=== PATIENT | female | born 1980 | race Caucasian/White ===

== ENCOUNTER 2024-10-04 13:46 | Outpatient (CLI) | payer BC, SELFPAY ==
--- NOTE | 2024-10-04 14:00 | CRLHL7_ITS ---
For Patients: As a result of the Century Cures Act, medical imaging exams and procedure reports are released immediately into your electronic medical record. You may view this report before your referring provider. If you have questions, please contact your health care provider. HISTORY: Dating and viability COMPARISON: None available of this gestation. TECHNIQUE: Transabdominal ultrasound examination of the early was performed. FINDINGS: A single intrauterine gestational sac is seen with a pole. The crown-rump length measurement of 3.3 cm gives an estimated gestational age of 10 weeks 1 day with an estimated date of delivery of 05/01/2025. This correlates well with the LMP of 07/23/2020 for which gives a clinical age of 10 weeks 3 days. Regular cardiac activity is seen at 180 BPM. There is no sign of free fluid in the pelvis. A complex probable corpus luteum cyst of is seen in the left ovary the ovaries are otherwise normal in appearance. IMPRESSION: Single intrauterine gestation with estimated age of 10 weeks 1 day. Regular cardiac activity is seen. Dictated by Aditya Rhodes MD @ 10/06/2024 12:28:05 PM (Electronically Signed)
== END 2024-10-04 13:47 | disposition home or self-care (01) ==
LOC: US 13:47
PROVIDERS: Visit Provider Advanced Practice Midwife
DX: Z34.91 Encounter for supervision of normal pregnancy, unspecified, first trimester (principal); Z3A.10 10 weeks gestation of pregnancy
CPT/HCPCS: 76801

== ENCOUNTER 2024-10-04 14:56 | Outpatient (CLI) | payer BC, SELFPAY | END 2024-10-04 14:57 | disposition home or self-care (01) | PROVIDERS: Visit Provider Advanced Practice Midwife | DX: O09.521 Supervision of elderly multigravida, first trimester (principal); Z3A.10 10 weeks gestation of pregnancy | CPT/HCPCS: 83021; 86592; 86703; 86704; 86706; 86762; 86787; 86803; 86850; 86900; 86901; 87086; 87340 ==

== ENCOUNTER 2024-10-30 11:08 | Outpatient (CLI) | payer BC, SELFPAY ==
--- NOTE | 2024-10-30 11:30 | CRLHL7_ITS ---
For Patients: As a result of the Century Cures Act, medical imaging exams and procedure reports are released immediately into your electronic medical record. You may view this report before your referring provider. If you have questions, please contact your health care provider. INDICATION: Concern for demise COMPARISON: 10/04/2020 TECHNIQUE: Ring-scale and color Doppler of the gravid uterus and fetus from a transabdominal approach. FINDINGS: Last menstrual period: 07/23/2024 Estimated gestational age: 14 weeks 1 day There is a single intrauterine gestation. Warrens-rump length is 6.9 centimeters which corresponds to an estimated gestational age of 13 weeks and 1 day. No cardiac activity is identified. Relatively low amniotic volume. Early placental formation along the left side of the uterus. IMPRESSION: demise. No cardiac activity. Dictated by Sindhu Wood MD @ 10/30/2024 12:35:24 PM (Electronically Signed)
== END 2024-10-30 11:09 | disposition home or self-care (01) ==
LOC: US 11:09
PROVIDERS: Visit Provider Obstetrics & Gynecology
DX: Z34.92 Encounter for supervision of normal pregnancy, unspecified, second trimester (principal); O36.4XX0 Maternal care for intrauterine death, not applicable or unspecified; Z3A.14 14 weeks gestation of pregnancy
CPT/HCPCS: 76815

== ENCOUNTER 2024-11-22 21:14 | Day surgery (SDC) | payer BC, SELFPAY ==
[2024-11-22] VITALS (7 sets, daily range): BP systolic 112–128; BP diastolic 66–68; PULSE 87–110; RESP 18; TEMP 36.9; O2SAT 100; BMI 24.1
--- OUTSIDE RECORDS SUMMARY | 2024-11-22 21:16 | XMS_ITS | Clinical Summary ---
[facility] Address [address] [address] Care Team Providers Care Summer Analyst Name Role Phone Shira Moreno MD Primary Care Provider Source Comments You are receiving this document as you are listed as the primary care provider,follow-up provider, or the patient has been referred to you for consultation.This is in compliance with the Medicare andOhio[facility] Hospitalca[facility] EHR Incentive Program,which states Providers who transition their patient to another setting of careor provider of care or refers their patient to another provider of care shouldprovide summary care record for each transition of care or referral. [email or web address] Allergies Active Allergy Reactions Criticality Noted Date Comments Penicillin V Rash Low 10/13/2016 Medications Medication Sig Dispensed Refills Start Date End Date Status Vit-Fe Fumarate-FA ( OR) Active Active Problems Problem Noted Date Diagnosed Date Supervision of wit h grand multiparity in third trimester 10/13/2016 Overview (11/12/2016): Hus: Spenser Sex: Boy plan: natural Kidney stones 10/13/2016 Family history of chromosomal abnormality 2015 Resolved Problems Problem Noted Date Diagnosed Date Resolved Date Malposition of fetus 12/11/2016 017 Overview (12/11/2016): Breech- sent for formal US Family History Medical History Relation Name Comments Diabetes Father Heart Attack Father High Cholesterol Father Hypertension Father Hypertension Mother Osteoporosis Mother Heart Disease Paternal Grandfather Heart Disease Paternal Grandmother Relation Name Status Comments Father Alive Mother Alive Brother Alive Maternal Grandfather Maternal Grandmother Paternal Grandfather Paternal Grandmother Sister Alive Social History Tobacco Use Types Packs/Day Years Used Date Smoking Tobacco: Never Alcohol Use Standard Drinks/Week Comments No 0 (1 standard drink = 0.6 oz pur e alcohol) Sex and Gender Information Value Date Recorded Sex Assigned at Not on file Gender Identity Not on file Sexual Orientation Not on file Last Filed Vital Signs Vital Sign Reading Time Taken Comments Blood Pressure 128/80 12/18/2016 12:46 PM PIANO TEACHER Pulse 80 10/13/2016 10:45 AM PIANO TEACHER Temperature - - Respiratory Rate - - Oxygen Saturation - - Inhaled Oxygen Concentration - - Weight 78.9 kg (174 lb) 12/18/2016 12:44 PM PIANO TEACHER Height 163.8 cm (5' 4.5) 10/13/2016 10:45 AM CS T Body Mass Index 29.41 10/13/2016 10:45 AM PIANO TEACHER Plan of Treatment Health Maintenance Due Date Last Done Comments Cervical Cancer Screening Due 1981 Hep C Screening (Preventive Services) 1981 Mammogram 1981 HIV Screening (Preventive Services) 1997 Adult Preventive Visit 1999 DTaP/Tdap/Td (1 - Tdap) 2000 HepB (1) 2000 COVID-19 Vaccine ( - 2023-2 5 season) 2024 Influenza (#1) 2024 Zoster/Shingles (1 of 2) 2031 HPV Vaccine Aged Out No longer eligi ble based on patient's age to complete this topic HepA Aged Out No longer eligi ble based on patient's age to complete this topic Hib Aged Out No longer eligi ble based on patient's age to complete this topic IPV (Polio) Aged Out No longer eligi ble based on patient's age to complete this topic MCV4 Aged Out No longer eligi ble based on patient's age to complete this topic Pneumococcal Aged Out No longer eligi ble based on patient's age to complete this topic Care Teams Summer Analyst Relationship Specialty Start Date End Date Shira Moreno MD [address] [place] [phone] PCP - General Family Practice 10/13/16
--- OUTSIDE RECORDS SUMMARY | 2024-11-22 21:16 | XMS_ITS | Referral Summary ---
Author Organization [facility] Address [address] [place] [address] Care Team Providers Care Lead Ramp Agent Name Role Phone Shira Moreno M.D. Primary Care Provider [phone] Source Comments Patient records contain information from all sites at [facility]. For routine questions regarding patient records, call [phone] during business hours, M-F 8:00 AM - 5:00 PM Central Time. Record requests for emergency care only can be directed to [phone] at any time.[facility] Allergies Active Allergy Reactions Criticality Noted Date Comments Penicillin V Rash Low 10/13/2016 Medications PNV no.95/ferrous fum/folic ac ( MULTIVITAMINS ORAL) Take 1 tablet by mouth daily. 02/17/20 14 Active acetaminophen (TYLENOL) 500 mg tablet Take 2 tablets (1,000 mg total) by mouth every 6 (six) hours as needed for pain. Alternate with ibuprofen every 3 hours. Do not exceed 4000 mg or 4 g in 24 hours. 10/06/20 23 Active ibuprofen (ADVIL,MOTRIN) 200 mg tablet Take 3 tablets (600 mg total) by mouth every 6 (six) hours as needed for pain. Alternate with acetaminophen every 3 hours. 10/06/20 23 Active Active Problems Problem Noted Date Diagnosed Date Incomplete Spontaneous 10/06/2023 Preoperative Exam 10/06/2023 Bleeding Vaginal Less Than 22 Week Pre gnancy 10/06/2023 Menstrual Irregularity 03/15/2023 Multigravida Advanced Matern al Age Affecting Management 12/07/2018 Calculus of kidney 10/13/2016 Resolved Problems Problem Noted Date Diagnosed Date Resolved Date 40 Weeks Gestation 12/06/2020 03/15/2023 33 Weeks Gestation 10/16/2020 11/20/2020 39 Weeks Gestation 02/15/2019 07/18/2020 Hypertension Gestational 02/09/2019 Immunizations Name Administration Dates Next Due Influenza, Unspecified 02/21/2021(Deferred: Aline ent Refused) Td (Adult), adsorbed 02/01/1998 Tdap 08/15/2012 Social History Tobacco Use Types Packs/Day Years Used Date Smoking Tobacco: Never Smokeless Tobacco: Never Tobacco Cessation:Counseling Given: Not Answered Comments:a few times as a kid Alcohol Use Standard Drinks/Week Comments No 0 (1 standard drink = 0.6 oz pur e alcohol) Overall Financial Resource Strain (CARDIA) Answe r Date Recorded How hard is it for you to pa y for the very basics like food, housing, medical care, and heating? Not very hard 09/14/2023 PHQ-2 Answer Date Recorded PHQ-2 Score 0 06/13/2021 Exercise Vital Sign Answer Date Recorde d On average, how many days pe r week do you engage in moderate to strenuous exercise (like a brisk walk)? 5 days 09/14/2023 On average, how many minutes do you engage in exercise at this level? 30 min 09/14/2023 Hunger Vital Sign Answer Date Recorded Within the past 12 months, y ou worried that your food would run out before you got the money to buy more. Never true 09/14/20 23 Within the past 12 months, t he food you bought just didn't last and you didn't have money to get more. Never true 09/14/2023 PRAPARE - Transportation Answer Date Re corded In the past 12 months, has l ack of transportation kept you from medical appointments or from getting medications? No 05/2023 In the past 12 months, has l ack of transportation kept you from meetings, work, or from getting things needed for daily living? No 09/14/2023 Depression Answer Date Recor ded PHQ-9 Total Score (max 27) 1 06/13 Nutrition Answer Date Recorded Nutrition: EVOO Fat Source Unknown 09/14 On average, how many serving s of fruits and vegetables do you eat per day (serving size is equal to 1 cup or approximately the size of a tennis ball)? 5 or more 09/14/2023 Dental Answer Date Recorded Dental: Regular Dentist Yes 09/14/20 Employment Answer Date Recorded Employment status Unemployed/not in [employer] paid workforce and NOT seeking employment 09/14/2023 Housing Stability Answer Date Recorded What is your living situation today? I have a [facility] place to live 09/14/2023 Comments No Sex and Gender Information Value Date Recorded Sex Assigned at Female 08/24/2018 2:11 PM CDT Legal Sex Female 3:54 PM AUTOMATIC PUNCH PRESS OPERATOR Gender Identity Female 08/24/2018 2:11 PM CDT Sexual Orientation Straight 08/24/2018 2: 11 PM CDT Last Filed Vital Signs Vital Sign Reading Time Taken Comments Blood Pressure 118/76 10/20/2023 11:03 AM AUTOMATIC PUNCH PRESS OPERATOR Pulse 80 10/20/2023 11:03 AM AUTOMATIC PUNCH PRESS OPERATOR Temperature 36.8 C (98.2 F) 10/06/2023 12:55 PM AUTOMATIC PUNCH PRESS OPERATOR Respiratory Rate 16 10/06/2023 12:55 PM AUTOMATIC PUNCH PRESS OPERATOR Oxygen Saturation 100% 10/06/2023 1:30 PM AUTOMATIC PUNCH PRESS OPERATOR Inhaled Oxygen Concentration - - Weight 63 kg (138 lb 14.2 oz) 10/20/2023 11:03 A M AUTOMATIC PUNCH PRESS OPERATOR Height 165.1 cm (5' 5) 10/20/2023 11:03 AM AUTOMATIC PUNCH PRESS OPERATOR Body Mass Index 23.11 10/20/2023 11:03 AM AUTOMATIC PUNCH PRESS OPERATOR Plan of Treatment Not on file Procedures Procedure Name Priority Date/Time Associated Diagnosis Comments BI BREAST SCREENING BILATERAL WITH TOMOSYNTHESIS RAD - Routine (most inpatients and all outpatients) 05/17/2023 5:07 PM CDT Screening Mammogram Breast Cancer LIPID PANEL, S Routine 05/07/2023 4:11 PM CDT Preventive Gynecological Exam HPV WITH GENOTYPING, PCR, THINPREP Routine 05/07/2023 3:45 PM CDT HIV-1/-2 AG AND AB SCRN, PLASMA Routine 05/09/2020 3:14 PM CDT Examination Normal First Trimester from Last 3 Months or Most Recently Relevant to Health Maintenance Results * BI Breast Screening Bilateral with Tomosynthesis (05/17/2023 5:07 PM CDT) Anatomical Region Laterality Modality Breast, Breast Imaging RST L OS, Breast Imaging ARZ LOS, Breast Imaging FLA LOS Bilateral Mammography 05/18/2023 10:1 0 AM CDT Impressions 05/18/2023 10:14 AM CDT Negative. RECOMMENDATION: Annual Screening Mammogram ASSESSMENT: BI-RADS: 1: Negative. Narrative 05/18/2023 10:14 AM CDT EXAM: BI BREAST SCREENING BILATERAL WITH TOMOSYNTHESIS Current study was evaluated with a Computer Aided Detection (CAD) system. INDICATION: Screening mammogram. COMPARISON: No prior studies; baseline screening exam. DENSITY: c. The breast(s) are heterogeneously dense, which may obscure small masses. FINDINGS: No mammographic findings of malignancy. Procedure Note Ramy Castro M.D. - 05/18/2023 EXAM: BI BREAST SCREENING BILATERAL WITH TOMOSYNTHESIS Current study was evaluated with a Computer Aided Detection (CAD) system. INDICATION: Screening mammogram. COMPARISON: No prior studies; baseline screening exam. DENSITY: c. The breast(s) are heterogeneously dense, which may obscuresmall masses. FINDINGS: No mammographic findings of malignancy. IMPRESSION: Negative. RECOMMENDATION: Annual Screening Mammogram ASSESSMENT: BI-RADS: 1: Negative. Dane Cota Jr., M.D. IMG BI PROCEDURES Mariajose l Result * (ABNORMAL) Lipid Panel (05/07/2023 4:11 PM CDT) Triglycerides 101 mg/dL 05/07/2023 4:35 PM CDT NPRG Comment: ----REFERENCE VALUE---- Normal: <150 mg/dL Borderline High: 150-199 mg/dL High: 200-499 mg/dL Very High: > or =500 mg/dL Cholesterol, Total 167 mg/dL 2022 4:35 PM CDT NPRG Comment: ----REFERENCE VALUE---- Desirable: < 200 mg/dL Borderline High: 200 - 239 mg/dL High: > or = 240 mg/dL Cholesterol, LDL, Calculated 101 mg/dL 05/07/2023 4:35 PM CDT NPRG Comment: ----REFERENCE VALUE---- Desirable: <100 mg/dL Above Desirable: 100-129 mg/dL Borderline High: 130-159 mg/dL High: 160-189 mg/dL Very High: >=190 mg/dL ----ADDITIONAL INFORMATION---- LDL cholesterol calculated using the Ball/NIH equation. Cholesterol, HDL 47(L) >=50 mg/dL 05/07/20 4:35 PM CDT NPRG Cholesterol, Non-HDL, Calculated 120 mg/dL 05/07/2023 4:35 PM CDT NPRG Comment: ----REFERENCE VALUE---- Desirable: <130 mg/dL Above Desirable: 130-159 mg/dL Borderline High: 160-189 mg/dL High: 190-219 mg/dL Very High: > or =220 mg/dL Fasting (8 HR or more) No 05/07/2023 4:17 PM CDT NPRG Blood (Blood, Venous) 05/07/2023 4:11 PM CDT 05/07/2023 4:17 PM CDT Dane Cota Jr., M.D. LAB BLOOD ADD-ON Final Result [facility] [address] [place] [address], [facility] NPRG [facility] [address] [place] [address] * HPV with Genotyping, PCR, ThinPrep (05/07/2023 3:45 PM CDT) Pathologist [facility] HPV with Genotyping, ThinPrep, PCR Negative Negative 05/10/2023 5:48 PM CDT MKTO Comment: Negative for high risk HPV by nucleic acid amplification. The following high risk HPV types were not detected: 16, 18, 31, 33, 35, 39, 45, 51, 52, 56, 58, 59, 66, and 68 This result does not rule out HPV in the patient, as the sensitivity of the test depends on the timing of the specimen collection and the quality of the specimen. Result should be correlated with patient's history, clinical presentation, and KEY RINGER cytology report. 05/07/2023 3:45 PM CDT 05/10/2023 8:47 AM CDT us Dane Cota Jr., M.D. LAB MICROBIOLOGY - GEN ERAL ORDERABLES Final Result [facility] [address] [place] [address], [facility] MKTO [address] [facility] [address] [place] [address] * HIV-1/-2 Ag and Ab Scrn, Plasma (05/09/2020 3:14 PM CDT) HIV Ag/Ab Scrn, P Negative Negative 05/13/2020 3:20 AM CDT [facility] Comment: Negative result does not rule out HIV infection. If exposure to HIV infection occurred <14 days ago, contact the laboratory to request addition of HIV-1 RNA detection / quantification test. HIV-1 p24 Ag Scrn, P Negative Negative 05/13/2020 3:20 AM CDT [facility] Comment: Negative result does not rule out HIV infection. If exposure to HIV infection occurred <14 days ago, contact the laboratory to request addition of HIV-1 RNA detection / quantification test. HIV-1 Ab Scrn, P Negative Negative 05/13/2020 3:20 AM CDT [facility] Comment: Negative result does not rule out HIV infection. If exposure to HIV infection occurred <14 days ago, contact the laboratory to request addition of HIV-1 RNA detection / quantification test. HIV-2 Ab Scrn, P Negative Negative 05/13/2020 3:20 AM CDT [facility] Comment: Negative result does not rule out HIV infection. If exposure to HIV infection occurred <14 days ago, contact the laboratory to request addition of HIV-1 RNA detection / quantification test. Blood (Blood, Venous) 05/09/2020 3:14 PM CDT 05/10/2020 7:11 AM CDT us Geal Ge M.D. LAB MICROBIOLOGY - BLOOD ORDERABLES Final Result [facility] [address] [place] [address], [place] [facility] [place] [address] [place] [address] from Last 3 Months or Most Recently Relevant to Health Maintenance Insurance JOSE MOLINA Advance Directives For more information, please contact: [phone] * Full Code (Latest Code Status on File) Date Activated Date Inactivated Comments 10/06/2023 12:56 PM 10/06/2023 4:02 PM Question Answer Comments Full Code: Discussed * Full Code Date Activated Date Inactivated Comments 10/06/2023 12:16 PM 10/06/2023 12:56 PM Question Answer Comments Full Code: Discussed * Full Code Date Activated Date Inactivated Comments 03/16/2023 1:58 PM 03/16/2023 4:49 PM Question Answer Comments Full Code: Discussed * Full Code Date Activated Date Inactivated Comments 02/15/2019 12:34 PM 02/17/2019 6:41 PM Question Answer Comments Full Code: Discussed Care Teams Lead Ramp Agent Relationship Specialty Start Date End Date Shira Moreno M.D. [address] [place] [address], [place] [address] [facility] - General 04/22/17
--- OUTSIDE RECORDS SUMMARY | 2024-11-22 21:16 | XMS_ITS | Clinical Summary ---
Author Organization [facility] Address [address] [place] [address] Care Team Providers Care Condenser Operator Name Role Phone Shira Moreno M.D. Primary Care Provider [phone] Source Comments Patient records contain information from all sites at [facility]. For routine questions regarding patient records, call [phone] during business hours, M-F 8:00 AM - 5:00 PM Central Time. Record requests for emergency care only can be directed to [phone] at any time.[facility] Allergies Active Allergy Reactions Criticality Noted Date [...] Refused) Td (Adult), adsorbed 02/01/1998 Tdap 08/15/2012 Family History Medical History Relation Name Comments Coronary artery disease Father colon Diabetes Father colon Heart attack Father colon Hyperlipidemia Father colon Hypertension Father colon Hypertension Mother dev Osteoporosis Mother Relation Name Status Comments Father colon Mother Social History Tobacco Use Types Packs/Day Years [...] Answer Date Recorded Employment status Unemployed/not in [employer] paid workforce and NOT seeking employment 09/14/2023 Housing Stability Answer Date Recorded What is your living situation today? I have a [facility] place to live 09/14/2023 Comments No Sex and Gender Information Value Date Recorded Sex Assigned at Female 08/24/2018 2:11 PM CDT Legal Sex Female 3:54 PM CLINICAL SALES CONSULTANT Gender Identity Female 08/24/2018 2:11 PM CDT Sexual Orientation Straight 08/24/2018 2: 11 PM CDT Last Filed Vital Signs Vital Sign Reading Time Taken Comments Blood Pressure 118/76 10/20/2023 11:03 AM CLINICAL SALES CONSULTANT Pulse 80 10/20/2023 11:03 AM CLINICAL SALES CONSULTANT Temperature 36.8 C (98.2 F) 10/06/2023 12:55 PM CLINICAL SALES CONSULTANT Respiratory Rate 16 10/06/2023 12:55 PM CLINICAL SALES CONSULTANT Oxygen Saturation 100% 10/06/2023 1:30 PM CLINICAL SALES CONSULTANT Inhaled Oxygen Concentration - - Weight 63 kg (138 lb 14.2 oz) 10/20/2023 11:03 A M CLINICAL SALES CONSULTANT Height 165.1 cm (5' 5) 10/20/2023 11:03 AM CLINICAL SALES CONSULTANT Body Mass Index 23.11 10/20/2023 11:03 AM CLINICAL SALES CONSULTANT Plan of Treatment Health Maintenance Due Date Last Done Comments Hepatitis B Vaccines (1 of 3 - 19+ 3-dose series) 2000 DTaP,Tdap,and Td Vaccines (3 - Td or Tdap) 08/15/2022 08/15/2012, 02/01/1998 Mammogram 05/17/2024 05/17/2023 COVID-19 Vaccine ( season) 2024 Influenza Vaccine (#1) 2024 Depression Screening (Annual PHQ-2) 11/08/2024 Cervical/Vaginal Cancer Screening 05/07/2028 05/07/2023, 05/07/2023, 05/09/2020, Additional history exists Lipid (Cholesterol) Screening 05/07/2028 05/07/2023 HIV Screening Completed 05/09/2020, 08/08, 05/27/2016, Additional history exists HPV Vaccines Aged Out No longer eligi ble based on patient's age to complete this topic IPV Vaccines Aged Out No longer eligi ble based on patient's age to complete this topic Pneumococcal vaccine (0-49 years) Aged Out No longer eligible based on patient's age to complete this topic Procedures Procedure Name Priority Date/Time Associated Diagnosis [...] Annual Screening Mammogram ASSESSMENT: BI-RADS: 1: Negative. us Dane Cota Jr., M.D. IMG BI PROCEDURES Mariajose l Result * (ABNORMAL) Lipid Panel (05/07/2023 4:11 PM CDT) Triglycerides 101 mg/dL 05/07/2023 4:35 PM CDT NPR Comment: ----REFERENCE VALUE---- Normal: <150 mg/dL Borderline [...] or more) No 05/07/2023 4:17 PM CDT NPR Blood (Blood, Venous) 05/07/2023 4:11 PM CDT 05/07/2023 4:17 PM CDT Dane Cota Jr., M.D. LAB BLOOD ADD-ON Final Result [facility] [address] [place] [address], [facility] [address] [place] [address] * HPV with Genotyping, PCR, ThinPrep (05/07/2023 3:45 PM CDT) HPV with Genotyping, ThinPrep, PCR Negative Negative [...] correlated with patient's history, clinical presentation, and MIME ARTIST cytology report. 05/07/2023 3:45 PM CDT 05/10/2023 8:47 AM CDT us Dane Cota Jr., M.D. LAB MICROBIOLOGY - GEN ERAL ORDERABLES Final Result [facility] [address] [place] [address], [place] [facility] [address] [address] * HIV-1/-2 Ag and Ab Scrn, Plasma [...] 3:14 PM CDT 05/10/2020 7:11 AM CDT Gael Ge M.D. LAB MICROBIOLOGY - BLOOD ORDERABLES Final Result [facility] [address] [place] [address], [facility] [place] [address] [place] [address] from Last 3 Months or Most Recently Relevant to Health Maintenance Insurance JOSE MOLINA Advance Directives For more information, please contact: [phone] * Full Code (Latest Code Status on [...] Answer Comments Full Code: Discussed Care Teams Condenser Operator Relationship Specialty Start Date End Date Shira Moreno M.D. [address] [place] [address] PCP - General 04/22/17
--- OUTSIDE RECORDS SUMMARY | 2024-11-22 21:16 | XMS_ITS ---
Author Organization [facility] Address [address] [place] [address] Care Team Providers Care Customer Success Advocate Name Role Phone Unavailable Unavailable Unavailable Surgery Details Not on file Complications Check Surgery Details section. Procedure Estimated Blood Loss Check Surgery Details section. Procedure Findings Check Surgery Details section. Procedure Specimens Taken Check Surgery Details section.
--- OUTSIDE RECORDS SUMMARY | 2024-11-22 21:16 | XMS_ITS | Clinical Summary ---
Author Organization [facility] Address [place], [place] [address] Care Team Providers Care Core Drill Operator Helper Name Role Phone Shira Moreno MD Primary Care Provider [phone] Allergies Active Allergy Reactions Criticality Noted Date Comments Penicillin V Rash Low 10/13/2016 Medications vitamin-folic acid 1 mg ( VITAMIN) tablet/capsuleI ndications:preg pavel Take 1 tablet by mouth once daily. Indications: Active Breast Pump - PurchaseIndicat ions: disorder, delivered For home use. Gestation age at delivery: term weeks. Reason for need: pumping. Length of need: lifetime. 1 Device 7 Active Active Problems Problem Noted Date Diagnosed Date Eighth 12/20/2016 Social History Tobacco Use Types Packs/Day Years Used Date Smoking Tobacco: Never Alcohol Use Standard Drinks/Week Comments No 0 (1 standard drink = 0.6 oz pur e alcohol) Comments No Sex and Gender Information Value Date Recorded Sex Assigned at Not on file Legal Sex Female 2:29 PM [employer] Gender Identity Not on file Sexual Orientation Not on file Obstetrics History Para Term AB IAB SAB Ectopic Multiple Livin g Live Births 10 8 8 2 2 8 8 Date Outcome GA Total Labor Labor/2nd/3rd Weight Sex Type Anes PTL Marlene A1 A5 Name Clin SAB 2000 SAB 05/2002 Term 40w 0d 2.95 kg (6 lb 8 oz) M Vag-S pont N Livin g Jorge Luis Delivery Location:[facility] 05/2004 Term 38w 0d 3.01 kg (6 lb 10 oz) M Vag-S pont N Livin g Becka sy 04/2006 Term 39w 0d 3.17 kg (7 lb) F Vag-S pont N Livin g Niru 03/2008 Term 39w 0d F Vag-S pont N Livin g Jesusita 04/2010 Term 39w 0d 3.4 kg (7 lb 8 oz) M Vag-S pont N Livin g Av 06/2012 Term 39w 0d 3.34 kg (7 lb 6 oz) M Vag-S pont N Livin g Ruddy cai 014 Term 39w 0d 3.29 kg (7 lb 4 oz) F Vag-S pont N Livin g Kailee 017 Term 38w 0d 3.46 kg (7 lb 10.1 oz) M Vag-S pont N Livin g Delivery Location:pt deliver ed in car on way to hospital Last Filed Vital Signs Vital Sign Reading Time Taken Comments Blood Pressure 134/74 12/21/2016 9:00 AM [employer] Pulse 82 12/21/2016 9:00 AM [employer] Temperature 36.8 C (98.3 F) 12/21/2016 9:00 AM [employer] Respiratory Rate 18 12/21/2016 9:00 AM [employer] Oxygen Saturation 100% 12/21/2016 9:00 AM [employer] Inhaled Oxygen Concentration - - Weight 78.9 kg (174 lb) 12/20/2016 1:58 AM [employer] Height 165.1 cm (5' 5) 12/20/2016 1:58 AM [employer] Body Mass Index 28.96 12/20/2016 1:58 AM [employer] Plan of Treatment Not on file Insurance [facility] Advance Directives * Full Code (Latest Code Status on File) Date Activated Date Inactivated Comments 12/20/2016 1:44 AM 12/21/2016 3:24 PM Care Teams Core Drill Operator Helper Relationship Specialty Start Date End Date Shira Moreno MD PCP - General 12/16/16
--- NOTE | 2024-11-22 21:32 | CRLHL7_ITS ---
For Patients: As a result of the Century Cures Act, medical imaging exams and procedure reports are released immediately into your electronic medical record. You may view this report before your referring provider. If you have questions, please contact your health care provider. INDICATION: Bleeding after miscarriage. TECHNIQUE: Ultrasound pelvis transabdominal. Grayscale and color Doppler imaging of the pelvis was performed. COMPARISON: None. FINDINGS: Uterus: 11.1 x 5.4 x 5.6 cm. Normal echotexture of the myometrium. No masses. Endometrium: Endometrial thickness not well visualized. Masslike hyperechoic area in the endometrium measuring 3.7 x 2.1 x 2.8 cm with increased surrounding vascularity. Right ovary measures 3.5 x 2.1 x 3.6 cm and left ovary measures 2.2 x 1.5 x 2.3 cm. No ovarian or adnexal masses. Normal blood flow is demonstrated in both ovaries. Cul-de-sac: No significant free fluid. IMPRESSION: Masslike area in the endometrium with increased surrounding vascularity, concerning for retained products of conception. Dictated by Eder Bansal MD @ 11/22/2024 11:52:26 PM (Electronically Signed)
[2024-11-22 22:04] LABS: Basophils Absolute Auto 0.04 K/uL (0.00-0.30); Basophils Percent Auto 0.4 % (0.0-3.0); Eosinophils Absolute Auto 0.07 K/uL (0.00-0.50); Eosinophils Percent Auto 0.7 % (0.0-7.0); Hematocrit 24.6 % (33.0-51.0); Hemoglobin* 8.2 gm/dL (12.0-16.0); Immature Granulocytes Abs Auto 0.08 K/uL (0.00-0.30); Immature Granulocytes Pct Auto 0.8 %; Lymphocytes Percent Auto 13.4 % (20-44); Mean Corpuscular HGB Conc 33 gm/dL (32-36); Mean Corpuscular Hemoglobin 31 pg (26-34); Mean Corpuscular Volume 91 fL (80-100); Monocytes Percent Auto 6.1 % (0.0-11.0); Neutrophils Percent Auto 78.6 % (42.0-72.0); Platelet Count* 293 K/uL (140-440); RDW Coefficient of Variation % 12.1 % (11.5-15.5); Red Blood Count 2.69 m/uL (4.00-5.20)
[2024-11-22 22:06] LABS: Slide Review Reflex No
[2024-11-22 22:11] LABS: Chloride* 103 mmol/L (96-114); Potassium* 3.4 mmol/L (3.6-5.1); Sodium* 132 mmol/L (135-149)
[2024-11-22 22:14] LABS: Anion Gap 5 mEq/L (7-15); Carbon Dioxide* 24 mmol/L (20-32); Creatinine* 0.5 mg/dL (0.5-1.5); Est. Creatinine Clearance* 130.55; Estimated Glomerular Filt Rate 119 ml/min
[2024-11-22 22:15] LABS: Blood Urea Nitrogen* 13 mg/dL (5-24); Calcium* 8.3 mg/dL (8.4-10.6); Glucose* 157 mg/dL (60-115)
[2024-11-22] MEDS: TRANEXAMIC ACID 100 MG/ML INJ 1000 MG IV (22:20)
--- NOTE | 2024-11-22 22:23 | P.GYNCN_ITS ---
SCREEN STRETCHER - CN: HPI Data of Consult Time Seen by Provider: 22:24 Date Seen: 11/22/24 Primary Care Provider: Not a Local Provider Consult Narrative Narrative: Janet Collado is a 44 year old female who presented to the ED with vaginal bleeding. She is s/p consultation with Dr. Wayne on 10/30/24 in the setting of missed . At that time, she was 14w1d GA by LMP consistent with 1st trimester US, where US confirmed demise with CRL measuring 13w1d GA. At that time, she had mild cramping but no bleeding. She was counseled on her options, where medical management was recommended. Patient elected to proceed with expectant management, strict precautions were reviewed. Patient notes her bleeding has varied since her last visit. She noted periods of spotting, then heavier days. Her bleeding seemed to peak on 11/12/24, when she passed about an orange-sized gestational sac. She did open the sac and notes the pole was visualized. She notes her bleeding had decreased since that time until today. She had mild flu-like symptoms about 1 week ago, when her children were ill as well. No fevers/chills, nausea/vomiting in the last few days. Today, she notes onset of heavy vaginal bleeding aroun 1900. She notes she soaked a pad in <1 hour x3 prior to presentation to care. On arrive, she was noted to be tachycardic to 110bpm with normal BP. Mentating appropriately. Speculum exam was performed by Dr. Siddiqi, who noted a large clot in the vagina and active bleeding. I was contacted at 2150 for consultation and presented immediately to the bedside. There, Neva affirmed the above history. 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 cc:: CC: [facility] Medical History Kidney stones ?N20.0 - Calculus of kidney (ICD-10) Surgical History History of hysteroscopy ?Z98.890 - Other specified postprocedural states (ICD-10) History of dilation and curettage ?Z98.890 - Other specified postprocedural states (ICD-10) Family History Father Myocardial infarction High blood pressure Diabetes Mother High blood pressure Son Diabetes Social History (Updated 10/30/24 @ 11:59 by Sabina Wayne MD) Narrative: SOCIAL? ? Lives in [place] Education: high school graduate? ? Work: Stay at home? ? Partner: Spenser? works as a environmental project manager Lives with: Spenser and 10 children? ? Pets: 2 cats? ? Abuse: Denies past Safe at home with current partner ? ? ? Special Diet: Denies? ? Ok with a blood transfusion: probably will discuss ? ? Culture or pentecostalism beliefs: denies? RISK FACTORS? ? Exercise Times/wk: Walking and some running, and workout videos, 5 days a week? ? Depression/Anxiety: denies? ? Previous Treatments NA ? Therapy NA FABIO: 1 PHQ 9: 5? ? Seat Belt Use: Routinely ? Smoking: Denies past/present? ? Alcohol/day: Denies while ? ?denies use when not Caffeine: occasional coffee? ? Drug Use: Denies past/present What is your current living situation?: I presently have a place to live Problems where you live: lead paint or pipes In the past 12 months, utilities in danger of being shut off: no In past 12 months, lack of transportation kept you from medical appts, meetings, work, or getting things needed for daily living: no How hard is it for you to pay for the very basics like food, housing, medical care, and heating: not very hard In the past 12 mos, have been you worried that your food would run out before you had money to buy more?: never true In the past 12 mos, the food you bought just didn't last and you didn't have money to buy more?: never true Smoking Status: Never smoker Do you use any of these nicotine containing products: None Second hand tobacco smoke exposure: No How often do you have a drink containing alcohol: never How often do you have six or more drinks on one occasion: Never AUDIT-C Alcohol total score: 0 Non-prescribed substance use: denies use How often does anyone, including family, friends and others, physically hurt you : never How often does anyone, including family, friends and others, insult or talk down to you: rarely How often does anyone, including family, friends and others, threaten you with harm: never How often does anyone, including family, friends and others, scream or curse at you: never service: No Health Related Social Needs: Inadequate housing (Z59.1) and Other personal risk factors, not elsewhere classified (Z91.89) Meds Home Medications and Allergies Home Medications ?Medication ?Instructions ?Recorded ?Confirmed ?Type cholecalciferol (vitamin D3) 50 50 mcg PO QDAY 10/04/24 11/22/24 History mcg (2,000 unit) capsule Allergies Allergy/AdvReac Type Severity Reaction Status Date / Time Penicillins Allergy Mild Verified 11/22/24 22:47 SCREEN STRETCHER - Exam Physical Exam: Vital signs: Temp Pulse Resp BP Pulse Ox O2 Del Method 98.5 F 110 H 18 128/66 100 Room Air 11/22/24 21:22 11/22/24 21:22 11/22/24 21:22 11/22/24 21:22 11/22/24 21:22 11/22/24 21:22 Narrative: General: Alert and oriented, seen lying flat in hospital bed. Psych: Appropriate mood and affect Abdomen: Soft, nontender and nondistended. Fundus palpates about 2 cm above the pubic symphysis, nontender. Transabdominal ultrasound performed: No apparent intrauterine gestational sac nor pole. Endometrial lining appears thickened and somewhat heterogenous, about 3cm in size, blood products seen in the cervix and vagina. Pelvic: Speculum exam notable for significant clot burden in the vaginal vault, attempted to be vacuolated with ring forceps. Active bleeding was noted to fill speculum despite this. During examination, patient's hemoglobin returned at 8.2 from 12.3. Decision was made to defer further exam is at the bedside given need for operative intervention. See plan below. SCREEN STRETCHER - Results Labs Labs: Short CBC 11/22/24 Range/Units 21:54 WBC 10.20 (4.50-11.00) K/uL Hgb 8.2 L (12.0-16.0) gm/dL Hct 24.6 L (33.0-51.0) % Plt Count 293 (140-440) K/uL [facility] 11/22/24 21:54 Sodium 132 L Potassium 3.4 L Chloride 103 Carbon Dioxide 24 BUN 13 Creatinine 0.5 Glucose 157 H Calcium 8.3 L Assessment and Plan Assessment and plan (1) Vaginal hemorrhage: Status: Acute (2) Missed : Problem comment: 13 weeks, 1 day by CRL Status: Acute (3) Prediabetes: Problem comment: HgbA1C 5.7 Status: Acute (4) Grand multipara: Status: Acute Plan Janet is a 44-year-old G15 P 10 seen in the emergency department in consultation for vaginal bleeding in the setting of a missed . Patient was diagnosed with early loss measuring 13 weeks 1 day's gestational age on 10/30/2024. She was counseled on her options, elected to proceed with expectant. Patient notes that her bleeding seemed to peak on about 11/12/2024, at which time she did pass the gestational sac which she noted did contain the pole. Bleeding had been improved until today, when she had the onset of heavy vaginal bleeding at about 1900. On arrival, she is normotensive but tachycardic to [address] Siddiqi urgently consulted me due to volume of bleeding on her speculum exam. Bedside transabdominal ultrasound by myself revealed passage of gestational sac/ pole, but heterogenous and thickened endometrial stripe. Formal transabdominal ultrasound was subsequently performed by analyst geochemical prospecting, who noted a t 3.7 cm endometrial thickening with increased vascularity suggestive of retained products of conception. She to noted blood products distally. I requested stat CBC, coags and type and screen. Hemoglobin subsequently returned at 8.2, from 12.7 on her new OB labs at on 10/04/2024. Patient was agreeable to a blood transfusion. I requested crossmatch of 2 units packed red blood cell, but that we start a transfusion of 1 unit of on cross-matched red blood cells now. 1g of IV TXA was administered in the ED. Plan to proceed with emergency suction dilation and curettage in proceed indicated. I explained the risks of procedure including bleeding, infection, damage to surrounding structures/perforation including the uterus, tubes, ovaries, bowel, bladder and blood vessels. I explained that we may need to utilize additional medications intraoperatively to address her bleeding, and discussed potential advanced surgical steps if bleeding were to be uncontrolled. Specifically, I did review if her bleeding is life-threatening and can be not controlled with conservative measures that hysterectomy could be required though this is very unlikely. Patient expressed understanding and was agreeable to plan. Written consent obtained. Plan to observe the patient overnight, likely trend labs with possible need for further transfusion. All questions answered.
--- NOTE | 2024-11-22 22:27 | ED.GENADULT ---
HPI - General Adult General Date Seen: 11/22/24 Chief complaint: Vaginal Bleeding Stated complaint: miscarriage/bleeding Time Seen by Provider: 11/22/24 21:34 History of Present Illness HPI narrative: Patient is a 44-year-old woman, G 15p10, who presents for bleeding after recent miscarriage. She was seen in women's health at the end of October. At that time she was 14 weeks by dates, no heart tones were seen and she had an ultrasound that showed a crown-rump length consistent with 13 weeks 1 day. D&C was recommended at that time due to the late date of loss, but she declined, wanted expected management. She is here with her , they say that about 10 days ago she started to have bleeding and cramping. She passed a sac which contained a fetus. She says she continued to have some bleeding after that although was fairly light and a few days ago she stopped having any bleeding at all. Tonight she redeveloped cramping and bleeding which she says was fairly heavy at home. She says she bled through 3 pads which were moderate absorbency. She has not had vomiting, has not documented fevers or chills. Did feel lightheaded on arrival. She has not had syncope. She is not anticoagulated for any reason. Related Data Home Medications ?Medication ?Instructions ?Recorded ?Confirmed cholecalciferol (vitamin D3) 50 50 mcg PO QDAY 10/04/24 11/22/24 mcg (2,000 unit) capsule Allergies Allergy/AdvReac Type Severity Reaction Status Date / Time Penicillins Allergy Mild Verified 11/22/24 22:47 Review of Systems Status of ROS: Reports: 10 or more systems reviewed and unremarkable except as noted in History and below [facility] Medical History Kidney stones ?N20.0 - Calculus of kidney (ICD-10) Surgical History History of hysteroscopy ?Z98.890 - Other specified postprocedural states (ICD-10) History of dilation and curettage ?Z98.890 - Other specified postprocedural states (ICD-10) Family History Father Myocardial infarction High blood pressure Diabetes Mother High blood pressure Son Diabetes Social History Narrative: SOCIAL? ? Lives in [place] Education: high school graduate? ? Work: Stay at home? ? Partner: Spenser? works as a iron pourer Lives with: Spenser and 10 children? ? Pets: 2 cats? ? Abuse: Denies past Safe at home with current partner ? ? ? Special Diet: Denies? ? Ok with a blood transfusion: probably will discuss ? ? Culture or pentecostalism beliefs: denies? RISK FACTORS? ? Exercise Times/wk: Walking and some running, and workout videos, 5 days a week? ? Depression/Anxiety: denies? ? Previous Treatments NA ? Therapy NA FABIO: 1 PHQ 9: 5? ? Seat Belt Use: Routinely ? Smoking: Denies past/present? ? Alcohol/day: Denies while ? ?denies use when not Caffeine: occasional coffee? ? Drug Use: Denies past/present What is your current living situation?: I presently have a place to live Problems where you live: lead paint or pipes In the past 12 months, utilities in danger of being shut off: no In past 12 months, lack of transportation kept you from medical appts, meetings, work, or getting things needed for daily living: no How hard is it for you to pay for the very basics like food, housing, medical care, and heating: not very hard In the past 12 mos, have been you worried that your food would run out before you had money to buy more?: never true In the past 12 mos, the food you bought just didn't last and you didn't have money to buy more?: never true Smoking Status: Never smoker Do you use any of these nicotine containing products: None Second hand tobacco smoke exposure: No How often do you have a drink containing alcohol: never How often do you have six or more drinks on one occasion: Never AUDIT-C Alcohol total score: 0 Non-prescribed substance use: denies use How often does anyone, including family, friends and others, physically hurt you: never How often does anyone, including family, friends and others, insult or talk down to you: rarely How often does anyone, including family, friends and others, threaten you with harm: never How often does anyone, including family, friends and others, scream or curse at you: never service: No Health Related Social Needs: Inadequate housing (Z59.1) and Other personal risk factors, not elsewhere classified (Z91.89) Exam Narrative: Exam Narrative: Vital signs reviewed In general, an alert, somewhat pale-appearing woman. Head: Normocephalic, atraumatic. Eyes: Sclera clear. Pupils equal and reactive. ENT: Mucous membranes moist. Neck: Supple without adenopathy. Heart: Tachycardic, regular without significant murmur. Lungs: Clear. No increased work of breathing, crackles or wheezes. Abdomen: Soft, nontender to palpation. Pelvic: Brief speculum exam showed approximately 1/4 cup of clot in the vaginal vault. This was removed. She has bright red blood in the vaginal vault, was not able to visualize the cervix. Extremities: Well perfused, pulses intact. No significant edema. Neurologic: Alert, conversant. Speech fluent, face symmetric. Moves all extremities equally. Skin: Warm, dry well perfused. Affect: Normal. Const: Vital Signs, click to edit/add: Vital Signs - 24 hr 11/22/24 21:22 11/22/24 22:24 11/22/24 22:30 Temperature 98.5 F Pulse Rate 91 87 Pulse Rate [Pulse Oximeter] 110 H Respiratory Rate 18 Blood Pressure Blood Pressure [Ri ght Upper Arm] 128/66 Pulse Oximetry 100 100 100 Oxygen Delivery Me thod Room Air 11/22/24 22:31 11/22/24 22:32 Temperature Pulse Rate 95 89 Pulse Rate [Pulse Oximeter] Respiratory Rate Blood Pressure 112/68 Blood Pressure [Ri ght Upper Arm] Pulse Oximetry 100 100 Oxygen Delivery Me thod Documenting provider has reviewed patient's vital signs: yes Course Course ED Course: On patient's arrival to the ER I put in orders, prior to seeing her for an IV, labs including a type and screen, a L of normal saline and pelvic ultrasound. After my exam, I did talk with Dr. De Oliveira on-call for Ob Gyne and she immediately came to the ER to evaluate the patient as well. I ordered a g of TXA IV. Patient's hemoglobin returned at 8.2, down from 12.7 last checked at the end of September. Metabolic panel is fairly unremarkable, sodium mildly low 132 and potassium mildly low at 3.4. Blood sugar 157. BUN 13, creatinine 0.5. Plan at this time is for D&C. Or crew was called in urgently. She did have a formal ultrasound done at the bedside which is consistent with retained products of conception on preliminary read. We ordered a unit of O-negative blood, continue cross match for additional units if needed. Coags normal. Tachycardia improved with some fluid here. Transferred to OR. Critical care time 30 minutes Vital Signs Vital signs: Initial Vital Signs Temperature 98.5 F 11/22/24 21:22 Temperature Source Temporal Artery Scan 11/22/24 21:22 Pulse Rate 110 H 11/22/24 21:22 Respiratory Rate 18 11/22/24 21:22 Blood Pressure 128/66 11/22/24 21:22 Blood Pressure Mean 86 11/22/24 21:22 Blood Pressure Position Sitting 11/22/24 21:22 Pulse Oximetry 100 11/22/24 21:22 Oxygen Delivery Method Room Air 11/22/24 21:22 Vital Signs Temperature 98.5 F 11/22/24 21:22 Pulse Rate 110 H 11/22/24 21:22 Respiratory Rate 18 11/22/24 21:22 Blood Pressure 128/66 11/22/24 21:22 Pulse Oximetry 100 11/22/24 21:22 Oxygen Delivery Method Room Air 11/22/24 21:22 Temperature 98.5 F 11/22/24 21:22 Pulse Rate 89 11/22/24 22:32 Respiratory Rate 18 11/22/24 21:22 Blood Pressure 112/68 11/22/24 22:31 Pulse Oximetry 100 11/22/24 22:32 Oxygen Delivery Method Room Air 11/22/24 21:22 Medications Administered Medications: Discontinued Medications Generic Name Dose Route Start Last Admin Trade Name Freq PRN Reason Stop Dose Admin Doxycycline Hyclate 200 mg 11/22/24 22:47 11/22/24 22:53 Doxycycline Hyclate 100 Mg PO 11/22/24 22:48 200 mg ONCE ONE Administration Tranexamic Acid 1,000 mg 11/22/24 21:48 11/22/24 22:20 Tranexamic Acid 100 Mg/Ml Inj IV 11/22/24 21:49 1,000 mg ONCE ONE Administration Medical Decision Making Lab Data Labs: Lab Results 11/22/24 11/22/24 Range/Units 21:54 22:30 WBC 10.20 (4.50-11.00) K/uL RBC 2.69 L (4.00-5.20) m/uL Hgb 8.2 L (12.0-16.0) gm/dL Hct 24.6 L (33.0-51.0) % MCV 91 (80-100) fL MCH 31 (26-34) pg MCHC 33 (32-36) gm/dL RDW Coeff of Sherry 12.1 (11.5-15.5) % Plt Count 293 (140-440) K/uL Neut % (Auto) 78.6 H (42.0-72.0) % Lymph % (Auto) 13.4 L (20-44) % Crockett % (Auto) 6.1 (0.0-11.0) % Eos % (Auto) 0.7 (0.0-7.0) % Baso % (Auto) 0.4 (0.0-3.0) % Neut # (Auto) 8.00 H (1.7-7.0) K/uL Lymph # (Auto) 1.40 (0.90-2.90) K/uL Crockett # (Auto) 0.60 (0.00-0.90) K/UL Eos # (Auto) 0.07 (0.00-0.50) K/uL Baso # (Auto) 0.04 (0.00-0.30) K/uL Abs Immat Gran (auto) 0.08 (0.00-0.30) K/uL Imm/Tot Granulo (auto) 0.8 % INR 1.05 (0.91-1.10) APTT 24 (23-33) Seconds Fibrinogen 367 (200-450) mg/dL Sodium 132 L (135-149) mmol/L Potassium 3.4 L (3.6-5.1) mmol/L Chloride 103 (96-114) mmol/L Carbon Dioxide 24 (20-32) mmol/L Anion Gap 5 L (7-15) mEq/L BUN 13 (5-24) mg/dL Creatinine 0.5 (0.5-1.5) mg/dL Estimated Creat Clear 130.55 Estimated GFR 119 ml/min Glucose 157 H (60-115) mg/dL Calcium 8.3 L (8.4-10.6) mg/dL Lab Acknowledgement Test Added Blood Type A Positive Antibody Screen NEGATIVE Crossmatch ([facility]) See Detail Discharge Plan Discharge Clinical Impression: Retained products of conception with hemorrhage Patient Disposition: XFER to OR
--- OUTSIDE RECORDS SUMMARY | 2024-11-22 22:38 | XMS_ITS | Referral Summary ---
Author Organization [facility] Address [address] [place] [address] Care Team Providers Care Health Advisor Name Role Phone Shira Moreno M.D. Primary Care Provider [phone] Source Comments Patient records contain information from all sites at [facility]. For routine questions regarding patient records, call [phone] during business hours, M-F 8:00 AM - 5:00 PM Central Time. Record requests for emergency care only can be directed to [phone] at any time.[facility] Allergies Active Allergy Reactions Criticality Noted Date [...] Answer Date Recorded Employment status Unemployed/not in [employer] paid workforce and NOT seeking employment 09/14/2023 Housing Stability Answer Date Recorded What is your living situation today? I have a [facility] place to live 09/14/2023 Comments No Sex and Gender Information Value Date Recorded Sex Assigned at Female 08/24/2018 2:11 PM CDT Legal Sex Female 3:54 PM DIESEL ELECTRICIAN Gender Identity Female 08/24/2018 2:11 PM CDT Sexual Orientation Straight 08/24/2018 2: 11 PM CDT Last Filed Vital Signs Vital Sign Reading Time Taken Comments Blood Pressure 118/76 10/20/2023 11:03 AM DIESEL ELECTRICIAN Pulse 80 10/20/2023 11:03 AM DIESEL ELECTRICIAN Temperature 36.8 C (98.2 F) 10/06/2023 12:55 PM DIESEL ELECTRICIAN Respiratory Rate 16 10/06/2023 12:55 PM DIESEL ELECTRICIAN Oxygen Saturation 100% 10/06/2023 1:30 PM DIESEL ELECTRICIAN Inhaled Oxygen Concentration - - Weight 63 kg (138 lb 14.2 oz) 10/20/2023 11:03 A M DIESEL ELECTRICIAN Height 165.1 cm (5' 5) 10/20/2023 11:03 AM DIESEL ELECTRICIAN Body Mass Index 23.11 10/20/2023 11:03 AM DIESEL ELECTRICIAN Plan of Treatment Not on file Procedures [...] Jr., M.D. LAB BLOOD ADD-ON Final Result [facility] [address] [place] [address], [facility] NPRG [facility] [address] [place] [address] * HPV with Genotyping, PCR, ThinPrep (05/07/2023 3:45 PM CDT) Pathologist [facility] HPV with Genotyping, ThinPrep, PCR Negative Negative [...] correlated with patient's history, clinical presentation, and CLINICAL QUALITY MANAGER cytology report. 05/07/2023 3:45 PM CDT 05/10/2023 8:47 AM CDT us Dane Cota Jr., M.D. LAB MICROBIOLOGY - GEN ERAL ORDERABLES Final Result [facility] [address] [place] [address], [facility] MKTO [address] [facility] [address] [place] [address] * HIV-1/-2 Ag and Ab Scrn, Plasma [...] PM CDT 05/10/2020 7:11 AM CDT us Gael Ge M.D. LAB MICROBIOLOGY - BLOOD ORDERABLES Final Result [facility] [address] [place] [address], [place] [facility] [place] [address] [place] [address] from Last 3 Months or Most Recently Relevant to Health Maintenance Insurance JOSE MOLINA Advance Directives For more information, please contact: [phone] * Full Code (Latest Code Status on [...] Answer Comments Full Code: Discussed Care Teams Health Advisor Relationship Specialty Start Date End Date Shira Moreno M.D. [address] [place] [address], [place] [address] [facility] - General 04/22/17
--- OUTSIDE RECORDS SUMMARY | 2024-11-22 22:38 | XMS_ITS | Clinical Summary ---
Author Organization [facility] Address [address] [place] [address] Care Team Providers Care Digester Capper Name Role Phone Shira Moreno M.D. Primary Care Provider [phone] Source Comments Patient records contain information from all sites at [facility]. For routine questions regarding patient records, call [phone] during business hours, M-F 8:00 AM - 5:00 PM Central Time. Record requests for emergency care only can be directed to [phone] at any time.[facility] Allergies Active Allergy Reactions Criticality Noted Date [...] Answer Date Recorded Employment status Unemployed/not in [employer] paid workforce and NOT seeking employment 09/14/2023 Housing Stability Answer Date Recorded What is your living situation today? I have a [facility] place to live 09/14/2023 Comments No Sex and Gender Information Value Date Recorded Sex Assigned at Female 08/24/2018 2:11 PM CDT Legal Sex Female 3:54 PM BOOKMOBILE DRIVER Gender Identity Female 08/24/2018 2:11 PM CDT Sexual Orientation Straight 08/24/2018 2: 11 PM CDT Last Filed Vital Signs Vital Sign Reading Time Taken Comments Blood Pressure 118/76 10/20/2023 11:03 AM BOOKMOBILE DRIVER Pulse 80 10/20/2023 11:03 AM BOOKMOBILE DRIVER Temperature 36.8 C (98.2 F) 10/06/2023 12:55 PM BOOKMOBILE DRIVER Respiratory Rate 16 10/06/2023 12:55 PM BOOKMOBILE DRIVER Oxygen Saturation 100% 10/06/2023 1:30 PM BOOKMOBILE DRIVER Inhaled Oxygen Concentration - - Weight 63 kg (138 lb 14.2 oz) 10/20/2023 11:03 A M BOOKMOBILE DRIVER Height 165.1 cm (5' 5) 10/20/2023 11:03 AM BOOKMOBILE DRIVER Body Mass Index 23.11 10/20/2023 11:03 AM BOOKMOBILE DRIVER Plan of Treatment Health Maintenance Due Date [...] Jr., M.D. LAB BLOOD ADD-ON Final Result [facility] [address] [place] [address], [facility] [address] [place] [address] * HPV with Genotyping, PCR, ThinPrep (05/07/2023 [...] correlated with patient's history, clinical presentation, and SHOP WORKER cytology report. 05/07/2023 3:45 PM CDT 05/10/2023 8:47 AM CDT us Dane Cota Jr., M.D. LAB MICROBIOLOGY - GEN ERAL ORDERABLES Final Result [facility] [address] [place] [address], [place] MK[place] [address] [address] * HIV-1/-2 Ag and Ab Scrn, Plasma [...] LAB MICROBIOLOGY - BLOOD ORDERABLES Final Result [facility] [address] [place] [address], [facility] [place] [address] [place] [address] from Last 3 Months or Most Recently Relevant to Health Maintenance Insurance JOSE MOLINA Advance Directives For more information, please contact: [phone] * Full Code (Latest Code Status on [...] Answer Comments Full Code: Discussed Care Teams Digester Capper Relationship Specialty Start Date End Date Shira Moreno M.D. [address] [place] [address] PCP - General 04/22/17
--- OUTSIDE RECORDS SUMMARY | 2024-11-22 22:38 | XMS_ITS ---
Author Organization [facility] Address [address] [place] [address] Care Team Providers Care Test Examiner Name Role Phone Unavailable Unavailable Unavailable Surgery Details Not on file Complications Check Surgery Details section. Procedure Estimated Blood Loss Check Surgery Details section. Procedure Findings Check Surgery Details section. Procedure Specimens Taken Check Surgery Details section.
--- OUTSIDE RECORDS SUMMARY | 2024-11-22 22:38 | XMS_ITS | Clinical Summary ---
[facility] Organization [facility] Address [address] [address] Care Team Providers Care Fork Truck Driver Name Role Phone Shira Moreno MD Primary Care Provider Source Comments You are receiving this document as you are listed as the primary care provider,follow-up provider, or the patient has been referred to you for consultation.This is in compliance with the Medicare and[place] Healthcaid EHR Incentive Program,which states Providers who transition their patient to another setting of careor provider of care or refers their patient to another provider of care shouldprovide summary care record for each transition of care or referral. [employer] [facility] Allergies Active Allergy Reactions Criticality Noted Date [...] Comments Blood Pressure 128/80 12/18/2016 12:46 PM LEGAL BILLING ANALYST Pulse 80 10/13/2016 10:45 AM LEGAL BILLING ANALYST Temperature - - Respiratory Rate - - Oxygen Saturation - - Inhaled Oxygen Concentration - - Weight 78.9 kg (174 lb) 12/18/2016 12:44 PM LEGAL BILLING ANALYST Height 163.8 cm (5' 4.5) 10/13/2016 10:45 AM CS T Body Mass Index 29.41 10/13/2016 10:45 AM LEGAL BILLING ANALYST Plan of Treatment Health Maintenance Due Date [...] age to complete this topic Care Teams Fork Truck Driver Relationship Specialty Start Date End Date Shira Moreno MD [address] [place] [phone] PCP - General Family Practice 10/13/16
--- OUTSIDE RECORDS SUMMARY | 2024-11-22 22:38 | XMS_ITS | Clinical Summary ---
Author Organization [employer] [facility] Address [place], [place] [address] Care Team Providers Care Filling Machine Operator Name Role Phone Shira Moreno MD Primary Care Provider [phone] Allergies Active Allergy Reactions Criticality Noted Date [...] on file Legal Sex Female 2:29 PM FLORIST Gender Identity Not on file Sexual Orientation [...] pont N Livin g Jorge Luis Delivery Location:[facility] 05/2004 Term 38w 0d 3.01 kg [...] Comments Blood Pressure 134/74 12/21/2016 9:00 AM FLORIST Pulse 82 12/21/2016 9:00 AM FLORIST Temperature 36.8 C (98.3 F) 12/21/2016 9:00 AM FLORIST Respiratory Rate 18 12/21/2016 9:00 AM FLORIST Oxygen Saturation 100% 12/21/2016 9:00 AM FLORIST Inhaled Oxygen Concentration - - Weight 78.9 kg (174 lb) 12/20/2016 1:58 AM FLORIST Height 165.1 cm (5' 5) 12/20/2016 1:58 AM FLORIST Body Mass Index 28.96 12/20/2016 1:58 AM FLORIST Plan of Treatment Not on file Insurance [facility] Advance Directives * Full Code (Latest Code Status on File) Date Activated Date Inactivated Comments 12/20/2016 1:44 AM 12/21/2016 3:24 PM Care Teams Filling Machine Operator Relationship Specialty Start Date End Date Shira Moreno MD PCP - General 12/16/16
[2024-11-22] MEDS: DOXYCYCLINE HYCLATE 100 MG 200 MG PO (22:53)
[2024-11-22] MEDS: 0.9 % SODIUM CHLORIDE 1000 ml 1,000 ML IV (23:00)
[2024-11-22 23:11] LABS: Fibrinogen* 367 mg/dL (200-450); INR 1.05 (0.91-1.10); Partial Thromboplastin Time* 24 Seconds (23-33); Prothrombin Time 14.3 Seconds
--- OUTSIDE RECORDS SUMMARY | 2024-11-22 23:27 | XMS_ITS | Referral Summary ---
Author Organization [facility] Address [address] [place] [address] Care Team Providers Care Cae Engineer Name Role Phone Shira Moreno M.D. Primary Care Provider [phone] Source Comments Patient records contain information from all sites at [facility]. For routine questions regarding patient records, call [phone] during business hours, M-F 8:00 AM - 5:00 PM Central Time. Record requests for emergency care only can be directed to [phone] at any time.[facility] Allergies Active Allergy Reactions Criticality [...] Answer Date Recorded Employment status Unemployed/not in [employer] paid workforce and NOT seeking employment 09/14/2023 Housing Stability Answer Date Recorded What is your living situation today? I have a [facility] place to live 09/14/2023 Comments No Sex and Gender Information Value Date Recorded Sex Assigned at Female 08/24/2018 2:11 PM CDT Legal Sex Female 3:54 PM MMA FIGHTER Gender Identity Female 08/24/2018 2:11 PM CDT Sexual Orientation Straight 08/24/2018 2: 11 PM CDT Last Filed Vital Signs Vital Sign Reading Time Taken Comments Blood Pressure 118/76 10/20/2023 11:03 AM MMA FIGHTER Pulse 80 10/20/2023 11:03 AM MMA FIGHTER Temperature 36.8 C (98.2 F) 10/06/2023 12:55 PM MMA FIGHTER Respiratory Rate 16 10/06/2023 12:55 PM MMA FIGHTER Oxygen Saturation 100% 10/06/2023 1:30 PM MMA FIGHTER Inhaled Oxygen Concentration - - Weight 63 kg (138 lb 14.2 oz) 10/20/2023 11:03 A M MMA FIGHTER Height 165.1 cm (5' 5) 10/20/2023 11:03 AM MMA FIGHTER Body Mass Index 23.11 10/20/2023 11:03 AM MMA FIGHTER Plan of Treatment Not on file Procedures [...] Jr., M.D. LAB BLOOD ADD-ON Final Result [facility] [address] [place] [address], [facility] [address] [place] [address] * HPV with Genotyping, PCR, ThinPrep (05/07/2023 3:45 PM CDT) Pathologist [facility] HPV with Genotyping, ThinPrep, PCR Negative Negative [...] correlated with patient's history, clinical presentation, and AUTO BODY REPAIR ESTIMATOR cytology report. 05/07/2023 3:45 PM CDT 05/10/2023 8:47 AM CDT us Dane Cota Jr., M.D. LAB MICROBIOLOGY - GEN ERAL ORDERABLES Final Result [facility] [address] [place] [address], [facility] [place] [address] [facility] [address] [place] [address] * HIV-1/-2 Ag and Ab Scrn, Plasma [...] LAB MICROBIOLOGY - BLOOD ORDERABLES Final Result [facility] [address] [place] [address], [place] [facility] [place] [address] [place] [address] from Last 3 Months or Most Recently Relevant to Health Maintenance Insurance JOSE MOLINA Advance Directives For more information, please contact: [phone] * Full Code (Latest Code Status on [...] Answer Comments Full Code: Discussed Care Teams Cae Engineer Relationship Specialty Start Date End Date Shira Moreno M.D. [address] [place] [address], [place] [address] [facility] - General 04/22/17
--- OUTSIDE RECORDS SUMMARY | 2024-11-22 23:27 | XMS_ITS | Clinical Summary ---
Author Organization [facility] Address [address] [place] [address] Care Team Providers Care Campus Recruiting Internship Name Role Phone Shira Moreno M.D. Primary Care Provider [phone] Source Comments Patient records contain information from all sites at [facility]. For routine questions regarding patient records, call [phone] during business hours, M-F 8:00 AM - 5:00 PM Central Time. Record requests for emergency care only can be directed to [phone] at any time.[facility] Allergies Active Allergy Reactions Criticality Noted Date [...] Answer Date Recorded Employment status Unemployed/not in [employer] paid workforce and NOT seeking employment 09/14/2023 Housing Stability Answer Date Recorded What is your living situation today? I have a [facility] place to live 09/14/2023 Comments No Sex and Gender Information Value Date Recorded Sex Assigned at Female 08/24/2018 2:11 PM CDT Legal Sex Female 3:54 PM COMMERCIAL CREDIT SPECIALIST Gender Identity Female 08/24/2018 2:11 PM CDT Sexual Orientation Straight 08/24/2018 2: 11 PM CDT Last Filed Vital Signs Vital Sign Reading Time Taken Comments Blood Pressure 118/76 10/20/2023 11:03 AM COMMERCIAL CREDIT SPECIALIST Pulse 80 10/20/2023 11:03 AM COMMERCIAL CREDIT SPECIALIST Temperature 36.8 C (98.2 F) 10/06/2023 12:55 PM COMMERCIAL CREDIT SPECIALIST Respiratory Rate 16 10/06/2023 12:55 PM COMMERCIAL CREDIT SPECIALIST Oxygen Saturation 100% 10/06/2023 1:30 PM COMMERCIAL CREDIT SPECIALIST Inhaled Oxygen Concentration - - Weight 63 kg (138 lb 14.2 oz) 10/20/2023 11:03 A M COMMERCIAL CREDIT SPECIALIST Height 165.1 cm (5' 5) 10/20/2023 11:03 AM COMMERCIAL CREDIT SPECIALIST Body Mass Index 23.11 10/20/2023 11:03 AM COMMERCIAL CREDIT SPECIALIST Plan of Treatment Health Maintenance Due Date [...] 4:11 PM CDT 05/07/2023 4:17 PM CDT Dnae Cota Jr., M.D. LAB BLOOD ADD-ON Final Result [facility] [address] [place] [address], [facility] [address] [place] [address] * HPV with Genotyping, PCR, ThinPrep (05/07/2023 [...] correlated with patient's history, clinical presentation, and DRY CLIPPER TENDER cytology report. 05/07/2023 3:45 PM CDT 05/10/2023 8:47 AM CDT us Dane Cota Jr., M.D. LAB MICROBIOLOGY - GEN ERAL ORDERABLES Final Result [facility] [address] [place] [address], [place] [address] [address] * HIV-1/-2 Ag and Ab Scrn, Plasma [...] LAB MICROBIOLOGY - BLOOD ORDERABLES Final Result [facility] [address] [place] [address], [facility] [place] [address] [place] [address] from Last 3 Months or Most Recently Relevant to Health Maintenance Insurance JOSE MOLINA Advance Directives For more information, please contact: [phone] * Full Code (Latest Code Status on [...] Answer Comments Full Code: Discussed Care Teams Campus Recruiting Internship Relationship Specialty Start Date End Date Shira Moreno M.D. [address] [place] [address] PCP - General 04/22/17
--- OUTSIDE RECORDS SUMMARY | 2024-11-22 23:27 | XMS_ITS ---
Author Organization [facility] Address [address] [place] [address] Care Team Providers Care Concrete Pipe Machine Operator Name Role Phone Unavailable Unavailable Unavailable Surgery Details Not on file Complications Check Surgery Details section. Procedure Estimated Blood Loss Check Surgery Details section. Procedure Findings Check Surgery Details section. Procedure Specimens Taken Check Surgery Details section.
--- OUTSIDE RECORDS SUMMARY | 2024-11-22 23:27 | XMS_ITS | Clinical Summary ---
Author Organization [employer] [facility] Address [place], [place] [address] Care Team Providers Care Installer Name Role Phone Shira Moreno MD Primary Care Provider [phone] Allergies Active Allergy Reactions Criticality Noted Date [...] on file Legal Sex Female 2:29 PM STATISTICIAN APPLIED Gender Identity Not on file Sexual Orientation [...] pont N Livin g Jorge Luis Delivery Location:[facility] 05/2004 Term 38w 0d 3.01 kg [...] Comments Blood Pressure 134/74 12/21/2016 9:00 AM STATISTICIAN APPLIED Pulse 82 12/21/2016 9:00 AM STATISTICIAN APPLIED Temperature 36.8 C (98.3 F) 12/21/2016 9:00 AM STATISTICIAN APPLIED Respiratory Rate 18 12/21/2016 9:00 AM STATISTICIAN APPLIED Oxygen Saturation 100% 12/21/2016 9:00 AM STATISTICIAN APPLIED Inhaled Oxygen Concentration - - Weight 78.9 kg (174 lb) 12/20/2016 1:58 AM STATISTICIAN APPLIED Height 165.1 cm (5' 5) 12/20/2016 1:58 AM STATISTICIAN APPLIED Body Mass Index 28.96 12/20/2016 1:58 AM STATISTICIAN APPLIED Plan of Treatment Not on file Insurance [facility] Advance Directives * Full Code (Latest Code Status on File) Date Activated Date Inactivated Comments 12/20/2016 1:44 AM 12/21/2016 3:24 PM Care Teams Installer Relationship Specialty Start Date End Date Shira Moreno MD PCP - General 12/16/16
--- OUTSIDE RECORDS SUMMARY | 2024-11-22 23:27 | XMS_ITS | Clinical Summary ---
Author Organization [facility] Address [address], [place] [address] Care Team Providers Care Flight Manager Name Role Phone Shira Moreno MD Primary Care Provider [phone] Source Comments You are receiving this document as you are listed as the primary care provider,follow-up provider, or the patient has been referred to you for consultation.This is in compliance with the Medicare and[facility] Main Campuscaid EHR Incentive Program,which states Providers who transition their patient to another setting of careor provider of care or refers their patient to another provider of care shouldprovide summary care record for each transition of care or referral. [facility] Allergies Active Allergy Reactions Criticality Noted Date [...] Comments Blood Pressure 128/80 12/18/2016 12:46 PM CHIEF PILOT Pulse 80 10/13/2016 10:45 AM CHIEF PILOT Temperature - - Respiratory Rate - - Oxygen Saturation - - Inhaled Oxygen Concentration - - Weight 78.9 kg (174 lb) 12/18/2016 12:44 PM CHIEF PILOT Height 163.8 cm (5' 4.5) 10/13/2016 10:45 AM CS T Body Mass Index 29.41 10/13/2016 10:45 AM CHIEF PILOT Plan of Treatment Health Maintenance Due Date [...] age to complete this topic Care Teams Flight Manager Relationship Specialty Start Date End Date Shira Moreno MD [address] [place] [phone] PCP - General Family Practice 10/13/16
--- NOTE | 2024-11-22 23:40 | SUR.OPER ---
When prepping, RN noticed blood clot which weighed 58 g
[2024-11-22] MEDS: BUPIVACAINE 0.5% 30 ML 20 ML INJECTION (23:45)
[2024-11-23] VITALS (17 sets, daily range): BP systolic 100–131; BP diastolic 57–85; PULSE 74–108; RESP 14–17; TEMP 36.2–37.1; O2SAT 95–100
--- NOTE | 2024-11-23 00:17 | SUR.OPER ---
Ash used ultrasound intraoperative
--- NOTE | 2024-11-23 00:19 | P.ANES_ITS ---
Anesthesia Charges Start Date/Time Anesthesia Start Date: 11/23/24 Anesthesia Start Time: 23:13 Stop Date/Time Anesthesia Stop Date: 11/23/24 Anesthesia Stop Time: 00:13 Summary Emergency: GROUND SUPPORT EQUIPMENT ASSEMBLER Coding CPT Codes CPT Codes: ANESTH VAGINAL PROCEDURES - 16499 ([id number]) P1 - NORMAL HEALTHY PATIENT, QZ - GROUND SUPPORT EQUIPMENT ASSEMBLER SVC W/O CHANNEL LAYER BY Additional Codes: Summary - Emergency: GROUND SUPPORT EQUIPMENT ASSEMBLER ([id number])
--- NOTE | 2024-11-23 00:19 | W.ANESCHARGE ---
Anesthesia Charges Start Date/Time Anesthesia Start Date: 11/23/24 Anesthesia Start Time: 23:13 Stop Date/Time Anesthesia Stop Date: 11/23/24 Anesthesia Stop Time: 00:13 Summary Emergency: DIRECTOR OF FIELD COORDINATION Coding CPT Codes CPT Codes: ANESTH VAGINAL PROCEDURES - 92537 ([id number]) P1 - NORMAL HEALTHY PATIENT, QZ - DIRECTOR OF FIELD COORDINATION SVC W/O CONTRACT ADMIN BY Additional Codes: Summary - Emergency: DIRECTOR OF FIELD COORDINATION ([id number])
--- NOTE | 2024-11-23 00:25 | W.PM.GYNPROC ---
Procedure Note Date of procedure: 11/22/24 Will [facility] bill your pro fee for this procedure?: Yes Pre-op diagnosis: Incomplete Vaginal bleeding Symptomatic anemia Procedure: Suction dilation and curettage Anesthesia: MAC and local Complications: None Surgeon: Cliff Aleman MD Estimated blood loss (mL): 158 IV fluids (mL): 1,250 Urine Output (mL): 300 Pathology: specimen obtained, sent to pathology Condition: stable Disposition: observation Findings: Anteverted uterus, about 10 weeks in size Post-procedure transabdominal US confirms thin, homogenous endometrial stripe Procedure Description: After verifying written informed consent, the patient was taken to the operating room. A time-out was completed to verify correct patient and procedure. Anesthesia was induced and found to be adequate. A second IV was placed by Ariela Orozco CRNA. She was placed in the dorsal lithotomy position in candy-cane stirrups with care taken to avoid neurologic injury. She did receive a preoperative dose of doxycycline per protocol. She was prepared and draped in the usual sterile fashion. A surgical pause was conducted to confirm correct patient and procedure. Transfusion of 1u pRBCs was initiated. Infusion of 30U of pitocin was initiated at start of case. Bimanual exam was performed as above. Speculum was inserted. The cervix was identified and grasped with a ring forceps. A paracervical block was applied with 0.5% bupivicaine was performed, 20cc total. The cervix was noted to be dilated to about 1cm at baseline where a clot could be seen at the external os, grasped with a ring forceps and removed. The cervix did not require any dilation to accommodate a No. 10 curved curette. The curette was then and advanced to the uterine fundus. The intrauterine contents were aspirated until there was no further return of tissue, across 3 passes. Following this, a sharp curette was introduced into the endometrial cavity where gentle curettage confirmed satisfactory uterine cri in all quadrants. Transabdominal ultrasound was performed documenting a thin, uniform endometrial stripe. Ring was removed from the cervix. Cervix was noted to be hemostatic. Sponge and instrument count was correct. The patient was transferred to the recovery room in stable condition. Plan to proceed with stat repeat Hgb to assess for potential need for future transfusion. Products of conception were submitted to pathology. Surgical debrief completed.
--- NOTE | 2024-11-23 00:28 | SUR.PHASEI ---
250 cc bag of NS hung by Manjinder Orozco at 3056 and infused
[2024-11-23 00:38] LABS: Basophils Absolute Auto 0.03 K/uL (0.00-0.30); Basophils Percent Auto 0.3 % (0.0-3.0); Eosinophils Absolute Auto 0.02 K/uL (0.00-0.50); Eosinophils Percent Auto 0.2 % (0.0-7.0); Hematocrit 26.7 % (33.0-51.0); Hemoglobin* 8.8 gm/dL (12.0-16.0); Immature Granulocytes Abs Auto 0.02 K/uL (0.00-0.30); Immature Granulocytes Pct Auto 0.2 %; Lymphocytes Percent Auto 13.8 % (20-44); Mean Corpuscular HGB Conc 33 gm/dL (32-36); Mean Corpuscular Hemoglobin 30 pg (26-34); Mean Corpuscular Volume 91 fL (80-100); Monocytes Percent Auto 5.9 % (0.0-11.0); Neutrophils Percent Auto 79.6 % (42.0-72.0); Platelet Count* 197 K/uL (140-440); RDW Coefficient of Variation % 12.3 % (11.5-15.5); Red Blood Count 2.92 m/uL (4.00-5.20); White Blood Count* 10.06 K/uL (4.50-11.00)
[2024-11-23 00:41] LABS: Slide Review Reflex No
[2024-11-23] MEDS: KETOROLAC 15 MG/ML inj IVP (01:14)
[2024-11-23 04:37] LABS: Hemoglobin* 8.6 gm/dL (12.0-16.0)
--- NOTE | 2024-11-23 09:22 | P.DS_ITS ---
DS: Providers Provider Time Seen by Provider: :22 Date Seen: 11/23/24 Primary care physician: Not a Local Provider Attending Physician on discharge: Penelope Aleman MD PEST CONTROL WORKER-Discharge Summary Hospital Course Hospital Course Narrative: Patient is a 44 year old admitted on 11/22/23 for early loss resulting in hemorrhage. Indication for surgery: Acute hemorrhage. She had an uncomplicated surgery. Postoperative course has been uneventful. Vitals have been stable. She has remained afebrile. Today, on postoperative day 0, she reports the pain is well controlled. She has been able to ambulate Without difficulty. She is tolerating regular diet. She is passing flatus. Kidd catheter has been removed, and she is voiding without difficulty. Hgb stable at 8.6 gm/dL. Reviewed anemia precautions. Will send PO iron Time Spent with Patient Time attestation: Total time spent providing and/or coordinating discharge services: PEST CONTROL WORKER - Exam Physical Exam: Vital signs: Temp Pulse Resp BP Pulse Ox O2 Del Method 98.8 F 89 16 109/70 99 Room Air 11/23/24 06:17 11/23/24 07:17 11/23/24 07:17 11/23/24 07:17 11/23/24 07:17 11/23/24 07:17 Narrative: Physical exam: General: No acute distress Psych: Alert and oriented x4, full affect HEENT: Normocephalic, atraumatic Heart: Regular rate and rhythm, no murmur rub or gallop Lungs: Clear to auscultation bilaterally Abdomen: Normoactive bowel sounds, soft, no tenderness, rebound, or guarding Skin: No lesions or rashes Lower extremities: No edema or erythema Pelvic exam: No blood on pad PEST CONTROL WORKER - DS: Data Data Completed and Pending Labs on day of discharge: Labs from last 24 hours 11/23/24 11/23/24 11/22/24 04:30 00:30 22:30 WBC 10.06 RBC 2.92 L Hgb 8.6 L 8.8 L Hct 26.7 L MCV 91 MCH 30 MCHC 33 RDW Coeff of Sherry 12.3 Plt Count 197 Neut % (Auto) 79.6 H Lymph % (Auto) 13.8 L Carlton % (Auto) 5.9 Eos % (Auto) 0.2 Baso % (Auto) 0.3 Neut # (Auto) 8.00 H Lymph # (Auto) 1.40 Carlton # (Auto) 0.60 Eos # (Auto) 0.02 Baso # (Auto) 0.03 Abs Immat Gran (auto) 0.02 Imm/Tot Granulo (auto) 0.2 INR APTT Fibrinogen Sodium Potassium Chloride Carbon Dioxide Anion Gap BUN Creatinine Estimated Creat Clear Estimated GFR Glucose Calcium Lab Acknowledgement Test Added Blood Type Antibody Screen Crossmatch ([facility]) 11/22/24 21:54 WBC 10.20 RBC 2.69 L Hgb 8.2 L Hct 24.6 L MCV 91 MCH 31 MCHC 33 RDW Coeff of Sherry 12.1 Plt Count 293 Neut % (Auto) 78.6 H Lymph % (Auto) 13.4 L Carlton % (Auto) 6.1 Eos % (Auto) 0.7 Baso % (Auto) 0.4 Neut # (Auto) 8.00 H Lymph # (Auto) 1.40 Carlton # (Auto) 0.60 Eos # (Auto) 0.07 Baso # (Auto) 0.04 Abs Immat Gran (auto) 0.08 Imm/Tot Granulo (auto) 0.8 INR 1.05 APTT 24 Fibrinogen 367 Sodium 132 L Potassium 3.4 L Chloride 103 Carbon Dioxide 24 Anion Gap 5 L BUN 13 Creatinine 0.5 Estimated Creat Clear 130.55 Estimated GFR 119 Glucose 157 H Calcium 8.3 L Lab Acknowledgement Blood Type A Positive Antibody Screen NEGATIVE Crossmatch ([facility]) See Detail Procedures Procedures: Procedures Operation Date: 11/22/24 23:40 Actual Procedure Side Surgeon p Suction Dilatation & Curettage Penelope Aleman MD Discharge Plan Discharge Disposition: Home, Self-Care Discharging Surgeon: Penelope Aleman Follow-Up Appointment: 2 week post-op visit Prescriptions: New ferrous sulfate 134 mg (27 mg iron) tablet 134 mg PO QMWF 30 Days Qty: 13 0RF Continued cholecalciferol (vitamin D3) 50 mcg (2,000 unit) capsule 50 mcg PO QDAY Activity Level: Activity as Tolerated Discharge Diet: Regular Patient Instructions: Deep Sedation (DC), Dilation and Curettage (DC) Additional Instructions: Sexual restriction: Pelvic rest for 2 weeks Pain control: Over the counter Motrin 600 mg by mouth every six hours on a full stomach for pain as needed Over the counter Acetaminophen 1000 mg by mouth every six hours on a full stomach for pain as needed Please call with: - Heavy vaginal bleeding - Increasing or severe abdominal pain - Fevers/chills - Inability to tolerate solid/liquids by mouth, recurrent nausea/vomiting - Incision redness/drainage - Signs or symptoms of a blood clot - calf pain, redness, swelling, chest pain or shortness of breath Forms: Work/School Release Follow-up: Provider,Not a Local [Primary Care Provider] - Discharge Orders: Discharge Order (Routine); Ordered 11/23/24 Ordered By: Kerri Collins Consulting provider completed their portion of the discharge: Yes
== END 2024-11-23 09:58 | disposition home or self-care (01) ==
LOC: ED 22:56 → SS 23:25 → OB 11-23 00:59
PROVIDERS: Emergency Provider Emergency Medicine; Visit Provider Obstetrics & Gynecology
PROC: (CPT 59812; principal; 2024-11-22 23:30)
DX: O03.1 Delayed or excessive hemorrhage following incomplete spontaneous abortion (principal); D64.9 Anemia, unspecified; O03.39 Incomplete spontaneous abortion with other complications; R00.0 Tachycardia, unspecified; R73.03 Prediabetes
CPT/HCPCS: 59812; 00940; 36415; 36430; 76856; 76998; 80048; 85018; 85025; 85384; 85610; 85730; 86850; 86900; 86901; 86922; 88305; 94761; 99140; 99285; A9270; J0330; J0665; J1100; J1885; J2250; J2405; J2590; J2704; J3490; J7030; P9016

== ENCOUNTER 2025-04-18 13:40 | Outpatient (CLI) | payer BC, SELFPAY ==
--- NOTE | 2025-04-18 13:45 | CRLHL7_ITS ---
For Patients: As a result of the Cures Act, medical imaging exams and procedure reports are released immediately into your electronic medical record. You may view this report before your referring provider. If you have questions, please contact your health care provider. OBSTETRICAL ULTRASOUND TRANSABDOMINAL, 04/18/2025 CLINICAL INDICATION: Dating. LMP: 02/10/2025 ARISTEO by LMP: 11/17/2025 Gestational age: 9 weeks 4 days Previous ultrasound: No TECHNIQUE: Real-time chauhan-scale imaging of the fetus was performed transabdominal. FINDINGS: CRL: 2.9 cm, 9 weeks 5 days; ARISTEO 11/16/2025 heart rate: 171 BPM Gestational sac: 3.6 cm, appears within normal limits Yolk sac: 3.7 mm, appears within normal limits Right ovary: Not visualized Left ovary: Within normal limits; 3.2 x 2.5 x 2.7 cm IMPRESSION: Single living intrauterine with sonographic gestational age of 9 weeks 5 days and sonographic due date of 11/16/2025. JORGE LUIS LEVY M.D. Diagnostic Radiologist [facility] [email or web address] Transcribed: 6:[address]/Dictated by: Jorge Luis Levy MD @ 04/18/2025 5:19:00 PM (Electronically Signed)
== END 2025-04-18 13:41 | disposition home or self-care (01) ==
LOC: US 13:41
PROVIDERS: PCP Family Medicine; Visit Provider Registered Nurse
DX: Z34.91 Encounter for supervision of normal pregnancy, unspecified, first trimester (principal); Z3A.09 9 weeks gestation of pregnancy
CPT/HCPCS: 76801; 82565; 82570; 83021; 84156; 84450; 84460; 84520; 86592; 86703; 86704; 86803; 86850; 87086; 87340; 87491; 87591

== ENCOUNTER 2025-04-20 04:15 | Outpatient (CLI) | payer BC, SELFPAY | END 2025-04-20 04:16 | disposition home or self-care (01) | LOC: NFLDREF 04-23 20:28 | PROVIDERS: PCP Family Medicine; Referring Provider Family Medicine; Visit Provider Registered Nurse | DX: Z34.91 Encounter for supervision of normal pregnancy, unspecified, first trimester (principal); Z87.59 Personal history of other complications of pregnancy, childbirth and the puerperium; Z3A.09 9 weeks gestation of pregnancy | CPT/HCPCS: 82570; 84156 ==

== ENCOUNTER 2025-05-18 12:40 | Outpatient (CLI) | payer BC, SELFPAY | END 2025-05-18 12:41 | disposition home or self-care (01) | PROVIDERS: PCP Family Medicine; Visit Provider Physician Assistant | DX: R21 Rash and other nonspecific skin eruption (principal) | CPT/HCPCS: 87070; 87252 ==

== ENCOUNTER 2025-08-31 08:35 | Outpatient (CLI) | payer BC, SELFPAY | END 2025-08-31 08:36 | disposition home or self-care (01) | LOC: NFLDREF 09-03 20:22 | PROVIDERS: PCP Family Medicine; Referring Provider Family Medicine; Visit Provider Advanced Practice Midwife | DX: O09.42 Supervision of pregnancy with grand multiparity, second trimester (principal) | CPT/HCPCS: 86592 ==

== ENCOUNTER 2025-09-21 12:09 | Outpatient (CLI) | payer BC, SELFPAY ==
--- NOTE | 2025-09-21 12:15 | CRLHL7_ITS ---
For Patients: As a result of the Cures Act, medical imaging exams and procedure reports are released immediately into your electronic medical record. You may view this report before your referring provider. If you have questions, please contact your health care provider. OB ULTRASOUND ARISTEO by US: 11/16/2025. GA: 32 w, 0 d. Single. Comparison: 04/18/2025. INDICATION: AMA TECHNIQUE: Real time grayscale imaging of the fetus was performed. Transabdominal. CERVIX: Not visualized. POSITIONING: Vertex. AMNIOTIC FLUID: 6.3 cm. SDP (N: greater than 2 x 1 cm) PLACENTA: Technique: Transabdominal. PLACENTA POSITION: Posterior. DOPPLER: heart rate: 147 bpm. BIOMETRY: BPD: 8.2 cm. 32 w, 6 d, 65%. HC: 29.3 cm. 32 w, 2 d, 22%. AC: 28.5 cm. 32 w, 3 d, 63%. FL: 5.9 cm. 30 w, 6 d, 11%. FL/AC ratio: 20.77%. HC/AC ratio: 1.03. EFW: 1881g. Weight: 4 lbs., 2 oz. age by this US: 32 w, 1 d. ARISTEO by this US: 11/15/2025. Percentile by ARISTEO: 39%. IMPRESSION: 1. Sonographic gestational age 32 weeks 1 day and sonographic due date 11/15/2025. 2. Estimated weight 39th percentile. Abdominal circumference 63rd percentile. Jorge Luis Reynolds M.D. Diagnostic Radiologist [email or web address]/Dictated by: Jorge Luis Reynolds MD @ 09/21/2025 3:36:00 PM (Electronically Signed)
== END 2025-09-21 12:10 | disposition home or self-care (01) ==
LOC: US 12:09
PROVIDERS: PCP Family Medicine; Visit Provider Advanced Practice Midwife
DX: O09.523 Supervision of elderly multigravida, third trimester (principal); Z3A.32 32 weeks gestation of pregnancy
CPT/HCPCS: 76816

== ENCOUNTER 2025-10-19 15:33 | Outpatient (CLI) | payer BC, SELFPAY | END 2025-10-19 15:34 | disposition home or self-care (01) | LOC: NFLDREF 10-24 10:00 | PROVIDERS: PCP Family Medicine; Referring Provider Family Medicine; Visit Provider Advanced Practice Midwife | DX: O09.523 Supervision of elderly multigravida, third trimester (principal); R73.03 Prediabetes | CPT/HCPCS: 87081; 87653 ==

== ENCOUNTER 2025-10-26 14:51 | Outpatient (CLI) | payer BC, SELFPAY ==
--- NOTE | 2025-10-26 15:09 | CRLHL7_ITS ---
For Patients: As a result of the Cures Act, medical imaging exams and procedure reports are released immediately into your electronic medical record. You may view this report before your referring provider. If you have questions, please contact your health care provider. INDICATION: non reassuring NST. (Sic) COMPARISON: None available. TECHNIQUE: Grayscale pelvic ultrasound via a transabdominal approach. FINDINGS: number: 1 Position: Cephalic. Placental Position: Fundal/left lateral. Amniotic fluid: DVP 5.3cm. heart rate: 169bpm. BPP Score: Fluid: 2 Breathin Movement: 2 Tone: 2 Total: 8 IMPRESSION: Normal BPP score (8/8). Dictated by Osmin Walters MD @ 10/26/2025 3:41:35 PM (Electronically Signed)
[2025-10-26 15:12] VITALS: PULSE 78; RESP 16; TEMP 36.9; O2SAT 98
[2025-10-26 15:13] VITALS: BP 135/65; PULSE 74
[2025-10-26 15:31] VITALS: BP 130/59; PULSE 77
--- NOTE | 2025-10-26 16:03 | PM.OBLDTN ---
OB - Triage/Final Diagnosis Visit Information Time Seen by Provider: 16:04 Date Seen: 10/26/25 Narrative: The patient is a 45 year old 15 para 10 0 4 10 at 37+0 weeks gestation by 1st trimester US, who presents for extended monitoring. States baby has been a little more active than usual this afternoon. Here with . Reason for evaluation: other (Sent from clinic for extended monitoring after indeterminate NST in clinic. ) Evaluation Vital signs: Vital Signs - 24 hr 10/26/25 15:12 10/26/25 15:12 10/26/25 15:13 Temperature 98.5 F Pulse Rate 74 Respiratory Rate 16 Blood Pressure 135/65 Pulse Oximetry 98 10/26/25 15:31 Temperature Pulse Rate 77 Respiratory Rate Blood Pressure 130/59 L Pulse Oximetry Comments: SVE deferred. Fetus (Single) Heart Rate Baseline: 135 Prison Variability: Moderate (6-25) Monitor Accelerations: Present Monitor Decelerations: None Final Diagnosis (1) Advanced maternal age (AMA), 40 years or greater: Status: Acute Problem details: Reactive NST, no decels. BPP 8/8 in triage, DVP 5.3cm. Discharge to home, follow up in clinic next week as previously scheduled. Reviewed kick counts, expectations for movement, invited to return with any concerns prior to next clinic appointment. Total Time Spent Total Time Spent: 20 minutes
--- NOTE | 2025-10-26 16:48 | PC.OBNST ---
NST Note NST Note Start: 10/26/25 15:09 Freq: ONCE Status: Active Protocol: Document 10/26/25 16:47 BRM (Rec: 10/26/25 16:48 BRM No Response) NST Note 15 Para (# of births) 10 EDC 11/16/25 Gestational Age In 37 Weeks & 0 Days Weeks & Days High Risk Factors Advanced Maternal Age Patient Presented Other with Complaint(s) of Other Complaints Patient sent over to clinic for NST with decls and/or varibles They would like extended monitoring. Reactive Yes Appropriate for Yes Gestational Age Gita Grimes Date 10/26/25 Reactive Yes Appropriate for Yes Gestational Age Cecy Peñaloza CNM Date 10/26/25 OB NST charge Yes Complete NST Note Yes via Write Note The provider's electronic signature indicates the NST is reactive/appropriate for gestational age. *Note to provider: If an addendum is required, open the patient's chart and click on the note under the Nurse/Allied Health tab.
== END 2025-10-26 16:39 | disposition home or self-care (01) ==
LOC: OB OUT 14:55 → OB 14:56
PROVIDERS: PCP Family Medicine; Visit Provider Advanced Practice Midwife
DX: O36.8330 Maternal care for abnormalities of the fetal heart rate or rhythm, third trimester, not applicable or unspecified (principal); O09.523 Supervision of elderly multigravida, third trimester; Z3A.37 37 weeks gestation of pregnancy
CPT/HCPCS: 59025; 76819; G0463

== ENCOUNTER 2025-11-02 14:47 | Outpatient (CLI) | payer BC, SELFPAY ==
--- NOTE | 2025-11-02 14:45 | CRLHL7_ITS ---
For Patients: As a result of the Cures Act, medical imaging exams and procedure reports are released immediately into your electronic medical record. You may view this report before your referring provider. If you have questions, please contact your health care provider. OB ULTRASOUND INDICATION: AMA. ARISTEO by US: 11/16/2025. GA: 38 w, 0 d. Single. COMPARISON: US 10/26/2025, 09/21/2025, 04/18/2025. TECHNIQUE: Real time chauhan scale imaging of the fetus was performed. Transabdominal imaging performed. CERVIX: Not visualized. POSITIONING: Vertex. AMNIOTIC FLUID: 5.6 cm SDP (N: greater than 2 x 1 cm). BIOPHYSICAL PROFILE: Gross body movements: 2. tone: 2. Respiratory activity: 2. Amniotic fluid: 2. SDP (N: greater than 2 x 1 cm) Total score: 8. PLACENTA: Technique: Transabdominal. PLACENTA POSITION: Posterior. DOPPLER: heart rate: 169 bpm. IMPRESSION: Normal biophysical profile 06/15. Jorge Luis Reynolds M.D. Diagnostic Radiologist [email or web address]/Dictated by: Jorge Luis Reynolds MD @ 11/04/2025 1:46:00 PM (Electronically Signed)
== END 2025-11-02 14:48 | disposition home or self-care (01) ==
LOC: US 14:47
PROVIDERS: PCP Family Medicine; Visit Provider Advanced Practice Midwife
DX: O09.523 Supervision of elderly multigravida, third trimester (principal); Z3A.38 38 weeks gestation of pregnancy
CPT/HCPCS: 76819